=== PATIENT | female | born 1985 | race Caucasian/White ===

== ENCOUNTER 2018-01-15 21:14 | Emergency (ER) | payer OTHER, MEDICAID ==
[2018-01-15 21:42] VITALS: BP 109/63
[2018-01-15] MEDS ORDERED: Lidocaine 2% VISCOUS* 15 ML UDC SWISH SPIT ONE (22:11)
--- NOTE | 2018-01-15 22:20 | UC ---
UC General HPI - HPI Summary HPI Summary: pt c/o head cold, bodyaches and sore throat for [address] resolved; however , she developed mouth sores 2 days ago. her son recently had hand foot mouth dz. pt denies rash. - History of Current Complaint Chief Complaint: UCDentalProblem Stated Complaint: ORAL COMPLAINT Time Seen by Provider: 01/15/18 22:02 Hx Obtained From: Patient Hx Last Menstrual Period: 01/04/18 Onset/Duration: Gradual Onset Timing: Constant Pain Intensity: 5 Aggravating: nothing Alleviating: nothing - Allergy/Home Medications Allergies/Adverse Reactions: Allergies Allergy/AdvReac Type Severity Reaction Status Date / Time ciprofloxacin [From Cipro] Allergy Hives , Verified 01/15/18 21:54 nausea Sulfa (Sulfonamide Allergy Hives , Verified 01/15/18 21:54 Antibiotics) nausea Home Medications: Home Medications Ashwaganda 1 each 01/15/18 [History] Ibuprofen 400 mg PO Q8H 01/15/18 [History Confirmed 01/15/18] PMH/Surg Hx/FS Hx/Imm Hx Neurological History: Seizures - Surgical History Surgical History: Yes Surgery Procedure, Year, and Place: APPENDECTOMY JANUARY 10 2014. GALL BLADDER REMOVAL, NOVEMBER 2013. GASTRIC BYPASS FEB 2013. 2 C SECTIONS. RIGHT ANKLE REPAIR. - Family History Known Family History: Positive: Other - YEAST INFECTIONS IN HER MOTHER ALSO - Social History Occupation: Employed Full-time Lives: With Family Alcohol Use: None Substance Use Type: None Smoking Status (MU): Never Smoked Tobacco - Immunization History Vaccination Up to Date: Yes Review of Systems Constitutional: Negative Skin: Negative Eyes: Negative ENT: Sore Throat, Nasal Discharge Respiratory: Negative Cardiovascular: Negative Gastrointestinal: Negative Genitourinary: Negative Motor: Negative Neurovascular: Negative Musculoskeletal: Myalgia Neurological: Negative Psychological: Negative Is Patient Immunocompromised?: No All Other Systems Reviewed And Are Negative: Yes Physical Exam Triage Information Reviewed: Yes Appearance: Well-Appearing Vital Signs: Initial Vital Signs Temp 99.1 F 01/15/18 21:30 Pulse 70 01/15/18 21:30 Resp 17 01/15/18 21:30 BP 109/63 01/15/18 21:30 Pulse Ox 100 01/15/18 21:30 Vital Signs Reviewed: Yes Eyes: Positive: Conjunctiva Clear ENT: Positive: Pharyngeal erythema - ulcerations buccal mucosa and sides of tongue, TMs normal, Uvula midline. Negative: Nasal congestion, Nasal drainage, Tonsillar swelling, Tonsillar exudate, Trismus, Muffled voice, Hoarse voice Neck: Positive: Supple, Tenderness @ - peritonsilar nodes, Enlarged Nodes @ - peritonsilar Respiratory: Positive: Lungs clear, Normal breath sounds Cardiovascular: Positive: RRR, No Murmur Abdomen Description: Positive: Nontender, No Organomegaly, Soft Bowel Sounds: Positive: Present Musculoskeletal: Positive: ROM Intact Neurological: Positive: Alert Psychological: Positive: Age Appropriate Behavior Skin Exam: Normal Course/Dx - Differential Dx - Multi-Symptom Provider Diagnoses: Gingivostomatitis Discharge - Sign-Out/Discharge Documenting (check all that apply): Patient Departure - Discharge Plan Condition: Stable Disposition: HOME Patient Education Materials: Gingivostomatitis (ED) Referrals: Lisset Briones MD [Primary Care Provider] - 7 Days - Billing Disposition and Condition Condition: STABLE Disposition: Home Attestation Statement User Type: Provider - I was available for consult. This patient was seen by the TR. The patient was not presented to, seen by, or examined by me. -Radha
== END 2018-01-15 22:23 | disposition home or self-care (01) ==
LOC: UCCORT 21:14
DX: K05.10 Chronic gingivitis, plaque induced (principal); Z20.828 Contact with and (suspected) exposure to other viral communicable diseases; Z88.1 Allergy status to other antibiotic agents
CPT/HCPCS: 99212; G0463

== ENCOUNTER 2018-01-20 19:21 | Emergency (ER) | payer OTHER, MEDICAID ==
[2018-01-20 19:42] VITALS: BP 114/67
--- NOTE | 2018-01-20 20:00 | UC ---
Throat Pain/Nasal Jude HPI - HPI Summary HPI Summary: left ear and nasal congestion worsening over the past 2 weeks-no fevers-no relief with sudafed - History of Current Complaint Chief Complaint: UCGeneralIllness Stated Complaint: EAR (L), CONGESTION Time Seen by Provider: 01/20/18 19:55 Hx Obtained From: Patient Hx Last Menstrual Period: 01/04/18 ?: No Onset/Duration: Sudden Onset, Lasting Weeks - 2 Pain Intensity: 2 Pain Scale Used: 0-10 Numeric Cough: None Associated Signs & Symptoms: Positive: Sinus Discomfort, Nasal Discharge - Allergies/Home Medications Allergies/Adverse Reactions: Allergies Allergy/AdvReac Type Severity Reaction Status Date / Time ciprofloxacin [From Cipro] Allergy Hives , Verified 01/20/18 19:43 nausea Sulfa (Sulfonamide Allergy Hives , Verified 01/20/18 19:43 Antibiotics) nausea Home Medications: Home Medications Pseudoephedrine HCl [Nasal Decongestant] 30 mg PO DAILY 01/20/18 [History Confirmed 01/20/18] PMH/Surg Hx/FS Hx/Imm Hx Previously Healthy: Yes - Surgical History Surgical History: Yes Surgery Procedure, Year, and Place: APPENDECTOMY JANUARY 10 2014. GALL BLADDER REMOVAL, NOVEMBER 2013. GASTRIC BYPASS FEB 2013. 2 C SECTIONS. RIGHT ANKLE REPAIR. - Family History Known Family History: Positive: Other - YEAST INFECTIONS IN HER MOTHER ALSO - Social History Occupation: Employed Full-time Lives: With Family Alcohol Use: None Substance Use Type: None Smoking Status (MU): Never Smoked Tobacco - Immunization History Vaccination Up to Date: Yes Review of Systems Constitutional: Negative Skin: Negative Eyes: Negative ENT: Sore Throat, Ear Ache - Left, Nasal Discharge, Sinus Congestion, Sinus Pain /Tenderness Respiratory: Negative Cardiovascular: Negative Gastrointestinal: Negative Genitourinary: Negative Motor: Negative Neurovascular: Negative Musculoskeletal: Negative Neurological: Negative Psychological: Negative Is Patient Immunocompromised?: No All Other Systems Reviewed And Are Negative: Yes Physical Exam Triage Information Reviewed: Yes Appearance: Well-Nourished, Ill-Appearing - mild, Pain Distress - mild Vital Signs: Initial Vital Signs Temp 99.4 F 01/20/18 19:39 Pulse 84 01/20/18 19:39 Resp 16 01/20/18 19:39 BP 114/67 01/20/18 19:39 Pulse Ox 100 01/20/18 19:39 Vital Signs Reviewed: Yes Eye Exam: Normal Eyes: Positive: Conjunctiva Clear ENT Exam: Normal ENT: Positive: Normal ENT inspection, Hearing grossly normal, Pharynx normal, Nasal congestion, Nasal drainage, TMs normal - right, TM bulging - left, TM red - left, Sinus tenderness, Uvula midline. Negative: Tonsillar swelling, Tonsillar exudate, Trismus, Muffled voice, Hoarse voice, Dental tenderness Dental Exam: Normal Neck exam: Normal Neck: Positive: Supple, Nontender, No Lymphadenopathy Respiratory Exam: Normal Respiratory: Positive: Chest non-tender, Lungs clear, Normal breath sounds, No respiratory distress, No accessory muscle use Cardiovascular Exam: Normal Cardiovascular: Positive: RRR, No Murmur, Pulses Normal, Brisk Capillary Refill Musculoskeletal Exam: Normal Musculoskeletal: Positive: Strength Intact, ROM Intact, No Edema Neurological Exam: Normal Neurological: Positive: Alert, Muscle Tone Normal Psychological Exam: Normal Skin Exam: Normal Throat Pain/Nasal Course/Dx - Course Assessment/Plan: augmentin, flonase continue sudafed and ibuprofen follow with pcp rpn - Differential Dx/Diagnosis Provider Diagnoses: Left serrous otitis media Discharge - Sign-Out/Discharge Documenting (check all that apply): Patient Departure - Discharge Plan Condition: Stable Disposition: HOME Prescriptions: Amoxicillin/Clavulanate TAB* [Augmentin TAB 875*] 875 mg PO BID #20 tab Fluticasone NASAL SPRAY 50MCG* [Flonase NASAL SPRAY 50MCG*] 2 spray BOTH NARES DAILY #1 btl Patient Education Materials: Serous Otitis Media (ED) Referrals: Lisset Briones MD [Primary Care Provider] - If Needed - Billing Disposition and Condition Condition: STABLE Disposition: Home
== END 2018-01-20 20:07 | disposition home or self-care (01) ==
LOC: UCCORT 19:21
DX: H65.92 Unspecified nonsuppurative otitis media, left ear (principal); R09.81 Nasal congestion; Z88.1 Allergy status to other antibiotic agents; Z88.2 Allergy status to sulfonamides
CPT/HCPCS: 99212; G0463

== ENCOUNTER 2018-02-22 10:57 | Emergency (ER) | payer OTHER, MEDICAID ==
[2018-02-22 11:39] VITALS: BP 99/60
--- NOTE | 2018-02-22 12:20 | UC ---
Ear Complaint HPI - HPI Summary HPI Summary: 32 y/p female presents to the urgent care c/o left ear pain and plugged w/ decrease hearing for the past 1.5 weeks. Also Rt ear feels w/ fluid. Pain is dull 3/10 associated w/ sinus congestion and clear nasal discharge. Pt reports she was seen here for similar symptoms 1 month ago and Dx W/B/L otitis media and Rx Augmentin PO. She states ABx didn't work since symptoms still present and she only developed a vaginal discharge. Pt denies fever, ÁLVAREZ, dizziness, tinnitus, SOB, chest pain, abdominal pain, N/V/D. - History of Current Complaint Chief Complaint: UCRespiratory Stated Complaint: BILATERAL EAR COMPLAINT RECHECK Time Seen by Provider: 02/22/18 12:18 Hx Obtained From: Patient Hx Last Menstrual Period: 02/04/18 Onset/Duration: Gradual Onset, Lasting Weeks - 2 weeks, Worse Since - 2 days Severity Initially: Mild Severity Currently: Mild Pain Intensity: 3 Pain Scale Used: 0-10 Numeric Aggravating Factors: Nothing Alleviating Factors: OTC Meds Associated Signs/Symptoms: Positive: Hearing Loss, URI Symptoms - Allergies/Home Medications Allergies/Adverse Reactions: Allergies Allergy/AdvReac Type Severity Reaction Status Date / Time ciprofloxacin [From Cipro] Allergy Hives , Verified 02/22/18 11:32 nausea Sulfa (Sulfonamide Allergy Hives , Verified 02/22/18 11:32 Antibiotics) nausea PMH/Surg Hx/FS Hx/Imm Hx Previously Healthy: Yes Respiratory History: Asthma - Surgical History Surgical History: Yes Surgery Procedure, Year, and Place: APPENDECTOMY JANUARY 10 2014. GALL BLADDER REMOVAL, NOVEMBER 2013. GASTRIC BYPASS FEB 2013. 2 C SECTIONS. RIGHT ANKLE REPAIR. - Family History Known Family History: Positive: Diabetes, Other - YEAST INFECTIONS IN HER MOTHER ALSO - Social History Occupation: Employed Full-time Lives: With Family Alcohol Use: Occasionally Substance Use Type: None Smoking Status (MU): Current Some Day Smoker Type: Cigarettes Amount Used/How Often: occasional - Immunization History Vaccination Up to Date: Yes Review of Systems Constitutional: Negative Skin: Negative Eyes: Negative ENT: Ear Ache - B/L ear pain and fullness w/ decrease hearing LF>RT, Nasal Discharge - clear, Sinus Congestion Respiratory: Negative Cardiovascular: Negative Gastrointestinal: Negative Genitourinary: Negative Motor: Negative Neurovascular: Negative Musculoskeletal: Negative Neurological: Negative Psychological: Negative Is Patient Immunocompromised?: No All Other Systems Reviewed And Are Negative: Yes Physical Exam - Summary Physical Exam Summary: Vital signs: reviewed General: well developed, well nourished female sitting in the examining table w/ o any apparent distress Skin: [place], warm and dry, no evidence of atopic dermatitis, psoriasis, seborrhea. HEENT: -Head: atraumatic, non tender; no scalp dermatitis. -Eyes: sclera and conjunctiva clear, PERRLA, EOMI -Ears: no pre- or postauricular lymphadenopathy or erythema;LF external ear canal clear, LF TM injected w/ erythema and yellowish discharge, RT external ear canal clear and RT TM WNL.. No fluid level, vesicles, or bullae. No perforation. -Nose/Face: erythematous and edematous nasal mucosa with clear rhinorrhea, no frontal or maxillary sinus tender to palpation. -Mouth/Throat: Mucous membrane moist, posterior pharynx clear, no erythema or exudates. Neck: supple, FROM, nontender, no lymphadenopathy, no meningismus. Chest: Clear to auscultation, normal breath sounds Abd: soft, Bowel sounds active, Nontender. Back: no spinal or CVAT Neuro: A&O x4, GCS 15, no focal neuro deficits, normal behavior for age. Triage Information Reviewed: Yes Vital Signs: Initial Vital Signs Temp 98 F 02/22/18 11:33 Pulse 67 02/22/18 11:33 Resp 14 02/22/18 11:33 BP 99/60 02/22/18 11:33 Pulse Ox 100 02/22/18 11:33 Ear Complaint Course/Dx - Course Course Of Treatment: 32 y/p female presents to the urgent care c/o left ear pain and plugged w/ decrease hearing for the past 1.5 weeks. Also Rt ear feels w / fluid. Pain is dull 3/10 associated w/ sinus congestion and clear nasal discharge. Pt reports she was seen here for similar symptoms 1 month ago and Dx W/B/L otitis media and Rx Augmentin PO. She states ABx didn't work since symptoms still present and she only developed a vaginal discharge. Pt denies fever, ÁLVAREZ, dizziness, tinnitus, SOB, chest pain, abdominal pain, N/V/D. Hx obtained. Pt w/ left otitis Media and rhinosinusitis on examination. Pt Rx Doxicycline PO and flonase nasal spray to alleviate symptoms. Advised to take ibuprofen for otalgia and if symptoms do not improve or worsen to f/u w/ PCP or ENT Dr Vásquez for further management. Pt understood and agreed with D/C instructions. - Differential Dx/Diagnosis Differential Diagnosis/HQI/PQRI: Cerumen Impaction, Otitis Externa, Otitis Media , URI Provider Diagnoses: 1- Left otitis media. 2-Rhinosinusitis. 3-Otalgia Discharge - Sign-Out/Discharge Documenting (check all that apply): Patient Departure - D/C home All imaging exams completed and their final reports reviewed: No Studies - Discharge Plan Condition: Stable Disposition: HOME Prescriptions: DOXYcycline CAP(*) [DOXYcycline 100MG CAP(*)] 100 mg PO BID #20 cap Fluconazole [Fluconazole 150 mg tab] 150 mg PO ONCE #1 tablet Fluticasone NASAL SPRAY 50MCG* [Flonase NASAL SPRAY 50MCG*] 2 spray BOTH NARES DAILY #1 btl Patient Education Materials: Ear Infection (ED), Rhinosinusitis (ED) Referrals: Lisset Briones MD [Primary Care Provider] - 3 Days Vamsi Vásquez MD [Medical Doctor] - 3 Days Additional Instructions: 1- Please take the full course of the antibiotic to avoid resistance. Take yougut w/ probiotis to protect your GI system. Take Fluconazole PO as directed if you develop a yeast infection at the end of antibiotic 2-Please take ibuprofen PO q6-8hrs prn as instructed after meals to alleviate pain and swelling. Increase fluid intake, eat well, rest and avoid strenuous exercise 3- Please use the flonase nasal spray and saline drops to clear sinuses 4-If symptoms do not improve or worsen please return to the urgent care or f/u with your PCP or ENT Dr Vásquez in 3 days for further evaluation and treatment. - Billing Disposition and Condition Condition: STABLE Disposition: Home
== END 2018-02-22 12:44 | disposition home or self-care (01) ==
LOC: UCCORT 10:57
DX: H66.92 Otitis media, unspecified, left ear (principal); J32.9 Chronic sinusitis, unspecified; F17.210 Nicotine dependence, cigarettes, uncomplicated; H92.01 Otalgia, right ear
CPT/HCPCS: 99212; G0463

== ENCOUNTER 2018-11-25 15:37 | Emergency (ER) | payer OTHER ==
[2018-11-25 16:58] VITALS: BP 116/74
--- NOTE | 2018-11-25 17:04 | UC ---
Throat Pain/Nasal Jude HPI - HPI Summary HPI Summary: 32 y/o female presents to the urgent care c/o sore throat , headache, white spots on throat for the past 3 days. Pain w/ swallowing is 3/10. She also has mild B/L ear pressure and sinus congestion. Pt has taken OTC medications w/o any improvement. Pt denies fever, cough, wheezing, SOB, chest pain, abdominal pain, N/V/D. - History of Current Complaint Chief Complaint: UCRespiratory Stated Complaint: SORE THROAT x3 DAYS,FATIGUE,BILAT EAR CONCERN Time Seen by Provider: 11/25/18 17:03 Hx Obtained From: Patient Hx Last Menstrual Period: now ?: No Onset/Duration: Gradual Onset, Lasting Days - 3 days, Still Present, Worse Since - today Severity: Mild Pain Intensity: 3 Pain Scale Used: 0-10 Numeric Cough: None Associated Signs & Symptoms: Positive: Nasal Discharge - mild. Negative: Dysphagia, Wheezing, Sinus Discomfort, Fever, Rash - Epiglottits Risk Factors Epiglottis Risk Factors: Negative - Allergies/Home Medications Allergies/Adverse Reactions: Allergies Allergy/AdvReac Type Severity Reaction Status Date / Time ciprofloxacin [From Cipro] Allergy Hives , Verified 11/25/18 16:58 nausea Sulfa (Sulfonamide Allergy Hives , Verified 11/25/18 16:58 Antibiotics) nausea Home Medications: Home Medications Dm/P-Ephed/Acetaminoph/Doxylam [Jess[place]-Gate Plus Cold+Flu Pkt] 1 tab PO Q4H PRN 11/25/18 [History Confirmed 11/25/18] Omeprazole 40 mg PO DAILY 11/25/18 [History Confirmed 11/25/18] PMH/Surg Hx/FS Hx/Imm Hx Previously Healthy: Yes Respiratory History: Asthma - Surgical History Surgical History: Yes Surgery Procedure, Year, and Place: APPENDECTOMY JANUARY 10 2014. GALL BLADDER REMOVAL, NOVEMBER 2013. GASTRIC BYPASS FEB 2013. 2 C SECTIONS. RIGHT ANKLE REPAIR. - Family History Known Family History: Positive: Cardiac Disease, Hypertension, Diabetes, Other - YEAST INFECTIONS IN HER MOTHER ALSO - Social History Occupation: Employed Full-time Lives: With Family Alcohol Use: Occasionally Substance Use Type: None Smoking Status (MU): Current Some Day Smoker Type: Cigarettes Amount Used/How Often: occasional - Immunization History Vaccination Up to Date: Yes Review of Systems All Other Systems Reviewed And Are Negative: Yes Constitutional: Positive: Negative Skin: Positive: Negative Eyes: Positive: Negative ENT: Positive: Sore Throat, Nasal Discharge - mild clear Respiratory: Positive: Negative Cardiovascular: Positive: Negative Gastrointestinal: Positive: Negative Genitourinary: Positive: Negative Motor: Positive: Negative Neurovascular: Positive: Negative Musculoskeletal: Positive: Negative Neurological: Positive: Headache Psychological: Positive: Negative Is Patient Immunocompromised?: No Physical Exam - Summary Physical Exam Summary: VITAL SIGNS: Reviewed. GENERAL: Patient is a well developed and nourished female who is sitting comfortable in the examining table. Patient is not in any acute respiratory distress. HEAD AND FACE: No signs of trauma. No ecchymosis, hematomas or skull depressions. No sinus tenderness. EYES: PERRLA, EOMI x 2, No injected conjunctiva, no nystagmus. No photophobia. EARS: Hearing grossly intact. Ear canals and tympanic membranes are within normal limits. MOUTH: Positive pharynx with erythema, exudates, mild palatal petechiae. B/L tonsillar enlargement with exudate. Uvula in midline. NECK: Supple, trachea is midline, Positive anterior cervical lymphadenopathy, no JVD, no carotid bruit, no c-spine tenderness, neck with full ROM. No meningeal signs, no Kernig's or brudzinskis signs. CHEST: Symmetric, no tenderness at palpation LUNGS: Clear to auscultation bilaterally. No wheezing or crackles. CVS: Regular rate and rhythm, S1 and S2 present, no murmurs or gallops appreciated. ABDOMEN: Soft, non-tender. No signs of distention. No rebound no guarding, and no masses palpated. Bowel sounds are normal. EXTREMITIES: FROM in all major joints, no edema, no cyanosis or clubbing. NEURO: Alert and oriented x 3. No acute neurological deficits. Speech is normal and follows commands. SKIN: Dry and warm Triage Information Reviewed: Yes Vital Signs: Initial Vital Signs Temp 99.4 F 11/25/18 16:53 Pulse 75 11/25/18 16:53 Resp 18 11/25/18 16:53 BP 116/74 11/25/18 16:53 Pulse Ox 100 11/25/18 16:53 Throat Pain/Nasal Course/Dx - Course Course Of Treatment: 32 y/o female presents to the urgent care c/o sore throat , headache, white spots on throat for the past 3 days. Pain w/ swallowing is 3/10. She also has mild B/L ear pressure and sinus congestion. Pt has taken OTC medications w/o any improvement. Pt denies fever, cough, wheezing, SOB, chest pain, abdominal pain, N/V/D. Hx obtained. Pt w/ pharyngitis on examination. Rapid strep: negative. Viral pharyngitis.Pt advised to continue taking Tylenol PO to alleviates symptoms of pain and swelling. Advised on hand washing to avoid spreading. Pt declined Monospot test. Pt advised to rest, eat well and avoid strenuous exercise. If symptoms do not improve or worsen advised to return to the urgent care or f/u with her PCP for further evaluation and treatment. Pt understood and agreed - Differential Dx/Diagnosis Differential Diagnosis/HQI/PQRI: Laryngitis, Mononucleosis, Pharyngitis, Sinusitis, Tonsillitis, URI Provider Diagnosis: Acute viral pharyngitis Discharge - Sign-Out/Discharge Documenting (check all that apply): Patient Departure - D/C home All imaging exams completed and their final reports reviewed: No Studies - Discharge Plan Condition: Stable Disposition: HOME Patient Education Materials: Pharyngitis (ED) Referrals: [facility] [Outside] - 3 Days Additional Instructions: 1-Please continue taking Tylenol PO q6-8hrs prn as instructed after meals to alleviate fever, and sore throat. Increase fluid intake, eat well, rest and avoid strenuous exercise 2-If symptoms do not improve or worsen please return to the urgent care or f/u with your PCP in 3 days for further evaluation and treatment. - Billing Disposition and Condition Condition: STABLE Disposition: Home - Attestation Statements Provider Attestation: I was available for consult. This patient was seen by the TR. The patient was not presented to, seen by, or examined by me. -Radha
[2018-11-25] MEDS ORDERED: Acetaminophen TAB* 325 MG PO ONE (17:09)
== END 2018-11-25 17:35 | disposition home or self-care (01) ==
LOC: UCCORT 15:37
DX: J02.8 Acute pharyngitis due to other specified organisms (principal); Z88.1 Allergy status to other antibiotic agents; F17.210 Nicotine dependence, cigarettes, uncomplicated
CPT/HCPCS: 87651; 99212; A9270-GY; G0463

== ENCOUNTER 2019-04-15 09:55 | Emergency (ER) | payer OTHER ==
[2019-04-15 10:22] VITALS: BP 112/69
[2019-04-15] MEDS ORDERED: Acetaminophen TAB* 325 MG PO ONE (11:06)
--- NOTE | 2019-04-15 11:08 | UC ---
Throat Pain/Nasal Jude HPI - HPI Summary HPI Summary: 33-year-old woman comes in with a chief complaints of upper respiratory tract infection symptoms for 3 days. She's had a runny nose sinus pressure and then with postnasal drip giving her sore throat and cough. Today she went to work and then felt relatively quick onset of fatigue and myalgias. No complaint of any shortness of breath. No wheezing. She does have a history of asthma. - History of Current Complaint Chief Complaint: UCGeneralIllness Stated Complaint: ÁLVAREZ/ST/BILAT EAR PAIN/BODY ACHES Time Seen by Provider: 04/15/19 10:57 Hx Last Menstrual Period: 03/21/19 Pain Intensity: 0 - Allergies/Home Medications Allergies/Adverse Reactions: Allergies Allergy/AdvReac Type Severity Reaction Status Date / Time ciprofloxacin [From Cipro] Allergy Hives , Verified 04/15/19 10:19 nausea Sulfa (Sulfonamide Allergy Hives , Verified 04/15/19 10:19 Antibiotics) nausea PMH/Surg Hx/FS Hx/Imm Hx Previously Healthy: Yes Respiratory History: Asthma - Surgical History Surgical History: Yes Surgery Procedure, Year, and Place: APPENDECTOMY JANUARY 10 2014. GALL BLADDER REMOVAL, NOVEMBER 2013. GASTRIC BYPASS FEB 2013. 2 C SECTIONS. RIGHT ANKLE REPAIR. - Family History Known Family History: Positive: Cardiac Disease, Hypertension, Diabetes, Other - YEAST INFECTIONS IN HER MOTHER ALSO - Social History Alcohol Use: Occasionally Substance Use Type: None Smoking Status (MU): Current Some Day Smoker Type: Cigarettes Amount Used/How Often: occasional - Immunization History Vaccination Up to Date: Yes Review of Systems All Other Systems Reviewed And Are Negative: Yes Constitutional: Positive: Fatigue, Other - SEE HPI Skin: Positive: Negative Eyes: Positive: Negative ENT: Positive: Sore Throat, Nasal Discharge, Sinus Congestion Respiratory: Positive: Cough Cardiovascular: Positive: Negative Gastrointestinal: Positive: Negative Motor: Positive: Negative Neurovascular: Positive: Negative Musculoskeletal: Positive: Negative Neurological: Positive: Negative Psychological: Positive: Negative Is Patient Immunocompromised?: No Physical Exam Triage Information Reviewed: Yes Appearance: No Pain Distress, Well-Nourished, Ill-Appearing - MILD Vital Signs: Initial Vital Signs Temp 99.5 F 04/15/19 10:17 Pulse 81 04/15/19 10:17 Resp 15 04/15/19 10:17 BP 112/69 04/15/19 10:17 Pulse Ox 100 04/15/19 10:17 Vital Signs Reviewed: Yes Eye Exam: Normal Eyes: Positive: Conjunctiva Clear ENT: Positive: Pharyngeal erythema, Nasal congestion, Nasal drainage, TMs normal Neck: Positive: Supple Respiratory: Positive: Lungs clear, Normal breath sounds, No respiratory distress Cardiovascular: Positive: RRR Musculoskeletal: Positive: Strength Intact, ROM Intact Neurological: Positive: Alert Psychological: Positive: Normal Response To Family, Age Appropriate Behavior Skin Exam: Normal Throat Pain/Nasal Course/Dx - Course Course Of Treatment: DISCUSSED VIRAL VERSES BACTERIAL INFECTIONS AND THE ROLE OF ANTIBIOTICS. THE PATIENT PREFERS TO HAVE A PRESCRIPTION FOR ANTIBIOTICS TO BE USED IF NOT IMPROVING. - Differential Dx/Diagnosis Provider Diagnosis: Upper respiratory infection Discharge ED - Sign-Out/Discharge Documenting (check all that apply): Patient Departure All imaging exams completed and their final reports reviewed: No Studies - Discharge Plan Condition: Stable Disposition: HOME Prescriptions: Cefdinir [Cefdinir 300 MG CAP] 300 mg PO BID #20 cap Fluconazole 150 MG TAB* [Diflucan 150 MG TAB*] 150 mg PO ONCE PRN #2 tablet PRN Reason: Pain - Mild Patient Education Materials: Upper Respiratory Infection (ED) Forms: *Work Release Referrals: Sandra Harper PA [Primary Care Provider] - Additional Instructions: FOLLOW UP WITH YOUR DOCTOR IF NOT COMPLETELY IMPROVED. GET REEVALUATED SOONER IF NOT IMPROVING OR YOUR CONDITION WORSENS OR ANY QUESTIONS OR CONCERNS. - Billing Disposition and Condition Condition: STABLE Disposition: Home
[2019-04-15] MEDS ORDERED: Acetaminophen TAB* 325 MG ONE (11:14)
== END 2019-04-15 11:17 | disposition home or self-care (01) ==
LOC: UCCORT 09:55
DX: J06.9 Acute upper respiratory infection, unspecified (principal); J45.909 Unspecified asthma, uncomplicated; F17.210 Nicotine dependence, cigarettes, uncomplicated; R09.82 Postnasal drip; R53.83 Other fatigue; M79.10 Myalgia, unspecified site; Z88.1 Allergy status to other antibiotic agents; Z88.2 Allergy status to sulfonamides
CPT/HCPCS: 99212; A9270-GY; G0463